=== PATIENT | female | born 1930 | race Caucasian/White ===

== ENCOUNTER → 2018-07-02 | Outpatient (CLI) | payer SELFPAY ==
[2018-07-02 17:25] LABS: HCT 43.6 % (34.0-46.0); HGB 13.5 gm/dL (11.4-16.0); MCV 102.9 fL (80.0-100.0); Macrocytosis Slight; Mean Platelet Volume 7.9; Platelet Count 167 k/uL (150-450); RBC 4.24 m/uL (3.80-5.40); RDW 13.7 % (11.5-15.5); WBC 6.6 k/uL (3.8-10.6)
[2018-07-02 17:34] LABS: Potassium 4.6 mmol/L (3.5-5.1)
== END | disposition home or self-care (01) ==
LOC: LABPAT 16:24 → LABWHC1 16:24
PROVIDERS: ATTEND Internal Medicine Cardiovascular Disease
DX: Z01.812 Encounter for preprocedural laboratory examination (principal); I48.2 Chronic atrial fibrillation; Z95.0 Presence of cardiac pacemaker
CPT/HCPCS: 36415; 80051; 82565; 84520; 85027

== ENCOUNTER 2018-07-10 09:09 | Day surgery (SDC) | payer MEDICARE ==
[2018-07-05 08:33] VITALS: BMI 21.7
[~2018-07-10 09:09] MED LIST: SODIUM CHLORIDE 0.9% 1,000 ML IV SCH; ceFAZolin 1,000 MG in SODIUM CHLORIDE 0.9% IRRIGATIO 250 ML IRRIGATION ONE; ceFAZolin IN SWFI 2 GM/20 ML SYRINGE IVP ONE
[2018-07-10 09:31] VITALS: TEMP 97.6
[2018-07-10] MEDS ORDERED: LIDOCAINE 1% INJ 10MG/ML (20 ML MDV) SQ ONE ×3 (10:57→11:25)
[2018-07-10] MEDS ORDERED: fentaNYL (PF) 50 MCG/ML 2 ML AMP IV ONE (11:00)
[2018-07-10] MEDS ORDERED: ACETAMINOPHEN TAB 325 MG TAB PO PRN (11:51)
--- NOTE | 2018-07-10 11:57 | P.PCN ---
Date of Procedure: 07/10/18 Preoperative Diagnosis: Battery depletion Postoperative Diagnosis: The same Procedure(s) Performed: Temporary pacemaker implantation Description of Procedure: TEMPORARY PACEMAKER IMPLANTATION: Patient was brought to the lab in a fasting state. She was prepped and draped in the usual fashion. The right groin is infiltrated with lidocaine. Right femoral vein was entered and a 6-Israeli sheath was left in place. A 5-Israeli balloontipped temporary pacemaker wire was advanced under fluoroscopy and was placed near the apex of the right ventricle. Satisfactory thresholds were obtained. The pacemaker is set at a rate of 50 and output of 3. Patient tolerated the procedure well.
--- NOTE | 2018-07-10 12:03 | P.PCN ---
Date of Procedure: 07/10/18 Preoperative Diagnosis: Battery depletion Postoperative Diagnosis: The same Procedure(s) Performed: Partial capsulectomy, battery replacement. Description of Procedure: HISTORY: This is a 88-year-old female with history of permanent pacemaker implantation was brought in for battery replacement for battery depletion CONSENT: I have discussed the risks and benefits as related to the above mentioned procedure and both sedation/analgesia as well as necessary blood product administration. The patient has indicated understanding and acceptance of the risks of the procedure discussed. PROCEDURE: Patient was brought to the lab in a fasting state. Patient was given IV Versed and fentanyl for sedation. The skin over the existing pulse generator was infiltrated with lidocaine. An incision was made in the skin and was deepened until the pectoral fascia was exposed. Hemostasis was obtained. The existing pulse generator was pulled out of the pocket. The leads were disconnected and were checked for thresholds. Conscious Sedation: Versed 0mg Fentanyl 12.5 g Duration 70minutes THRESHOLDS: ATRIAL: The minimum patient threshold was 0.9 at a pulse width of 0.5. The impedance is 336 P-wave: 2.8 mV VENTRICULAR: The minimal patient threshold was 1.5 at pulse width of 1. The impedance is 497. R-wave: Not be measured THE LEADS: ATRIAL: This is manufactured by [employer]. Model number is 5594 and the serial number is [id number] VENTRICULAR: This is manufactured by [employer] model number is 5054. The serial number is [facility] [id number] THE EXPLANTED DEVICE: This is manufactured by [employer]. Model number is [facility] [id number] THE NEW DEVICE: This is manufactured by [employer]. Model number is [facility] [id number]. The serial number is [facility] [id number] The leads were then connected to a new pulse generator. Pacemaker seems to function normally. The pocket was irrigated with antibiotics. The pocket was closed in the usual fashion. Pectoral fascia was closed with 2-0 Prolene, the subcutaneous tissue was closed with 3-0 Prolene and the skin was closed with 4- 0 Prolene. Patient tolerated the procedure well . Patient will be monitored on the telemetry unit for 2-3 hours. If stable patient be discharged home later today. PLAN: Patient will be monitored for the next few hours. If stable patient be discharged home. Patient will continue home medications. She was given prophylactic antibiotic in the form of Keflex. She'll keep the area dry and seen in the office FALLOW UP: On week with Dr. Solares
[2018-07-10 12:59] VITALS: RESP 18
[2018-07-10 14:01] VITALS: BP 139/72; PULSE 64
[2018-07-10] MEDS ORDERED: CEPHALEXIN 250 MG CAP PO SCH (16:00)
== END 2018-07-10 16:07 | disposition home or self-care (01) ==
LOC: CATHEP 09:09
PROVIDERS: ATTEND Internal Medicine Cardiovascular Disease
DX: I48.2 Chronic atrial fibrillation (principal); Z45.010 Encounter for checking and testing of cardiac pacemaker pulse generator [battery]; I10 Essential (primary) hypertension; E78.5 Hyperlipidemia, unspecified; Z79.82 Long term (current) use of aspirin; Z79.899 Other long term (current) drug therapy
CPT/HCPCS: 33228; C1894; C1769 ×2; C1785; J0690 ×2; J2001; J3010